=== PATIENT | female | born 1995 | race Hispanic/Latino ===

== ENCOUNTER 2017-12-22 00:08 | Inpatient (IN) | payer OTHER ==
[2017-12-22] MEDS ORDERED: OXYTOCIN/LR 20 UNIT/1,000 ML BAG IV ONE (00:28)
[2017-12-22] MEDS ORDERED: Ringers Lactate 1,000 ML IV ONE (00:28)
[2017-12-22] MEDS ORDERED: CARBOPROST TROME 250 MCG/ML IM PRN (01:17)
[2017-12-22] MEDS ORDERED: MIDAZOLAM HCL 2 MG/2 ML INJ IV PRN (01:17)
[2017-12-22] MEDS ORDERED: MEPERIDINE HCL 25 MG/0.5 ML IV PRN (01:17)
[2017-12-22] MEDS ORDERED: BUTORPHANOL 1 MG/ML INJ IV PRN (01:17)
[2017-12-22] MEDS ORDERED: Ringers Lactate 1,000 ML IV PRN (01:17)
[2017-12-22] MEDS ORDERED: PROMETHAZINE 25 MG/ML VIAL IM PRN (01:17)
[2017-12-22] MEDS ORDERED: METHYLERGONOVINE 0.2MG/ML AMP IM PRN (01:17)
[2017-12-22 01:33] VITALS: BMI 35.8
[2017-12-22 01:40] LABS: RPR Titer ND
[2017-12-22 01:53] LABS: Absolute Lymphocytes (CBC) 2.3 K/uL (0.7-4.9); Absolute Monocytes 0.7 K/uL (0.1-1.3); Absolute Neutrophil 7.4 K/uL (1.8-8.0); Basophils % 0.7 % (0-1.3); Lymphocytes % 21.7 % (15.3-44.8); MCH 32.1 pg (27.0-35.0); MCV 93.3 fL (80-100); MPV 10.3 fL (7.6-11.3); Monocytes % 6.9 % (3.3-12.3); RBC Red Blood Cell Count 3.65 M/uL (3.86-4.86)
[2017-12-22 01:57] LABS: Urine Appearance CLOUDY; Urine Bilirubin NEGATIVE (NEG); Urine Blood 3+ (NEG); Urine Color YELLOW; Urine Glucose NEGATIVE (NEG); Urine Protein NEGATIVE (NEG); Urine Specific Gravity 1.015 (1.005-1.030); Urine Urobilinogen 0.2 mg/dL (0.2-1.0)
[2017-12-22] MEDS ORDERED: OXYTOCIN/LR 20 UNITS/1,000 ML BAG IV SCH (02:00)
[2017-12-22] MEDS ORDERED: Ringers Lactate 1,000 ML IV SCH (02:00)
[2017-12-22 02:23] LABS: Urine Bacteria <20 /HPF (<20); Urine Culture Reflex Order REFLEXED; Urine RBC <5 /HPF (NONE SEEN)
--- NOTE | 2017-12-22 06:33 | PREOPHP ---
Date of Admission: 12/22/2017 A 22-year-old female, at 39 weeks. The patient is Rh positive. Nonimmune to Rubella. Negative beta strep screen. Full admission and labor talk given. The patient is 2.5 cm, 60% effaced, vertex well applied. Cervix still slightly posterior. Rupture of membranes, clear fluid. Anticipate more rapi d progress from this point forward. The patient has no clear labor or plan. She knows if she wants pain medicines she simply has to ask. CASEY/EDITH Voice ID: [id number]
[2017-12-22] MEDS ORDERED: LIDOCAINE 2% INJ, 20 mL 20 ML ONE (12:01)
[2017-12-22] MEDS ORDERED: METHYLERGONOVINE 0.2MG/ML AMP IM ONE (13:17)
[2017-12-22] MEDS ORDERED: CARBOPROST TROME 250 MCG/ML IM ONE (13:17)
[2017-12-22] MEDS ORDERED: DOCUSATE NA/SENNA CONC 1 TAB PO PRN (15:55)
[2017-12-22] MEDS ORDERED: ACETAMINOPHEN 500 MG TAB PO PRN (15:55)
[2017-12-22] MEDS ORDERED: Oxycodone HCl/Acetaminophen 1 TAB TAB PO PRN ×2 (15:55)
[2017-12-22] MEDS ORDERED: DIPHENHYDRAMINE 25 MG TAB/CAP PO PRN (15:55)
[2017-12-22] MEDS ORDERED: BISACODYL 10 MG RECTAL SUPP RECT PRN (15:55)
[2017-12-22] MEDS ORDERED: IBUPROFEN 200 MG TAB PO PRN (15:55)
[2017-12-22] MEDS ORDERED: OXYTOCIN/LR 20 UNIT/1,000 ML BAG IV SCH (16:00)
[2017-12-22] MEDS ORDERED: CEFAZOLIN/NS 1gm 1 GM/50 ML BAG IVPB ONE (16:17)
[2017-12-22] MEDS ORDERED: CEFAZOLIN/SWI 1gm 1 GM/10 ML SYR IV ONE (16:30)
[2017-12-22] MEDS ORDERED: CEFAZOLIN/SWI 1gm 1 GM/10 ML SYR IV SCH (16:30)
--- NOTE | 2017-12-22 16:54 | PN ---
Subjective: The patient is talya every 2 to 3 minutes. She is 8 cm, 80% effaced. Baby is pos terior and -1 station. She has been doing pelvic rocks. She will try to stand beside the bed to do pelvic rocks that might help. She has had no medications so far and is doing quite well. Anticipate delivery relatively soon, and if the baby rotates fairly rapidly after it rotates. Full discussion with patient and family. CASEY/EDITH Voice ID: [id number] Report ID: [id number]
--- NOTE | 2017-12-22 18:00 | PN ---
Subjective: The patient is now a good 8 cm, 90% to 100% effaced. Baby is occiput posterior. She is doing pelvic rocking to try to get the baby to rotate. I think if it rotates, it will come easily. She seems to have adequate pelvic space. She is on 24 milliunits. We will go to 26. The baby stil l looks very good and the patient herself is still under excellent control. CASEY/EDITH Voice ID: [id number] Report ID: [id number]
--- NOTE | 2017-12-22 20:45 | PN ---
The patient is now complete and pushing. The baby is trying rotate. As soon as it rotates I think s he will deliver. CASEY/EDITH Voice ID: [id number] Report ID: [id number]
[2017-12-22 21:47] LABS: RPR (Rapid Plasma Reagin) NON-REACT (NON-REACT)
--- NOTE | 2017-12-23 01:49 | OP ---
Surgeon: Donell Keller MD History: A 22-year-old primigravida, 39 weeks, 1.5 cm on admission. Rupture of membranes at approxi mately 2 to 2.5 cm clear fluid. During the labor, the patient went absolutely natural excellent cont rol. Second stage of about 30 to 40 minutes. Spontaneous vaginal delivery of a 6 pounds 12 ounce fe male. Apgars 9 and 9. First-degree laceration extending from the right side of the introitus, hocke y stick down to the posterior fourchette, 2-0 chromic running locked and interrupted. Tea harkins of the placenta, inspected and noted to be intact and normal. Blood loss 350 cc. The patient gi juan 1 g of Ancef post repair of episiotomy for prophylaxis. Final Diagnoses: 1.Term intrauterine . 2.Vaginal delivery. CASEY/EDITH Voice ID: [id number] Report ID: [id number]
[2017-12-23 16:48] VITALS: BP 123/75; TEMP 98.3
[2017-12-24 19:03] LABS: HBsAG Nonreactive (Nonreactive)
== END 2017-12-23 18:00 | disposition home or self-care (01) | DRG 775 ==
LOC: 2ND-WC 00:08
PROVIDERS: ADMIT Specialist; ATTEND Specialist
PROC: 10E0XZZ Delivery of Products of Conception, External Approach (ICD-10-PCS; principal; 2017-12-20)
PROC: 0HQ9XZZ Repair Perineum Skin, External Approach (ICD-10-PCS; 2017-12-20)
PROC: 10907ZC Drainage of Amniotic Fluid, Therapeutic from Products of Conception, Via Natural or Artificial Opening (ICD-10-PCS; 2017-12-20)
DX: O70.0 First degree perineal laceration during delivery (principal); O64.0XX0 Obstructed labor due to incomplete rotation of fetal head, not applicable or unspecified; Z3A.39 39 weeks gestation of pregnancy; Z37.0 Single live birth
CPT/HCPCS: 36415; 81001; 85025; 86592; 86901; 87086; 87088; 87340; J0690; J2210; J2590

== ENCOUNTER 2020-07-24 17:42 | Emergency (ER) | payer OTHER, SELFPAY ==
[2020-07-24 20:04] LABS: BUN Blood Urea Nitrogen 9 mg/dL (7-18); Bicarbonate 25 mmol/L (21-32); Glucose Level 97 mg/dL (74-106); Sodium Level 139 mmol/L (136-145)
[2020-07-24] MEDS ORDERED: NA CHLORIDE 0.9% 1,000 ML ONE (20:10)
[2020-07-24] MEDS ORDERED: KETOROLAC 30 MG/ML INJ ONE (20:10)
[2020-07-24] MEDS ORDERED: METOCLOPRAMIDE 10 MG/2mL INJ ONE (20:10)
[2020-07-24] MEDS ORDERED: DIPHENHYDRAMINE 50 MG/ML VIAL ONE (20:10)
[2020-07-24 20:11] LABS: Potassium 3.9 mmol/L (3.5-5.1)
[2020-07-24 20:14] LABS: Absolute Lymphocytes (CBC) 1.9 K/uL (0.7-4.9); Basophils % 0.6 % (0-1.3); Hematocrit 39.2 % (36.0-45.0); Lymphocytes % 11.6 % (15.3-44.8); MPV 9.2 fL (7.6-11.3); RBC Red Blood Cell Count 4.46 M/uL (3.86-4.86)
[2020-07-24 20:18] LABS: Blood Morphology Comment NOT SEEN (NOT SEEN); Platelet Estimate ADEQ; White Blood Cell Scan OK (OK)
[2020-07-24 20:37] LABS: Urine Specific Gravity 1.025 (1.005-1.030)
[2020-07-24 20:37] LABS: Urine Blood TRACE (NEG); Urine Glucose NEGATIVE (NEG); Urine Protein NEGATIVE (NEG); Urine Specific Gravity 1.025 (1.005-1.030); Urine pH 5.5 (5.0-7.0)
[2020-07-24 21:01] LABS: Urine Bacteria >50 /HPF (<20); Urine Mucus 2+ /HPF (NONE SEEN)
--- NOTE | 2020-07-24 21:17 | EDPHYS ---
Physician Documentation [facility] Name: Lucita Mayes Age: 25 yrs Sex: Female : 1995 Arrival Date: 07/24/2020 Time: 17:43 Bed 16 Private MD: ED Physician Ari Corbett HPI: 07/24 23:06 This 25 yrs old Female presents to ER via Ambulatory with complaints of kb Dizziness, Headache. 23:06 The patient complains of pain to the right yazidism. The patient describes the headache kb as throbbing. Onset: The symptoms/episode began/occurred 10 day(s) ago. Associated signs and symptoms: Pertinent positives: nausea. Severity of symptoms: At its worst the pain was mild, moderate, in the emergency department the pain is unchanged. Headache History: The patient has had previous headaches and this one is similar to previous episodes. The symptoms are alleviated by nothing. the symptoms are aggravated by nothing. The patient has not experienced similar symptoms in the past. The patient has not recently seen a physician. Pt reports headache for approx 10 days. States she has had nausea as well. States she used to have similar headaches, but seemed to get over them. They started coming back recently. 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 - Social history:: Smoking status: Patient denies any tobacco usage or history of. ROS: 23:04 Constitutional: Negative for fever, chills, and weight loss, Cardiovascular: Negative kb for chest pain, palpitations, and edema, Respiratory: Negative for shortness of breath, cough, wheezing, and pleuritic chest pain, Back: Negative for injury and pain, MS/Extremity: Negative for injury and deformity, Skin: Negative for injury, rash, and discoloration. 23:04 Abdomen/GI: Positive for nausea. 23:04 Neuro: Positive for headache. Exam: 23:05 Constitutional: This is a well developed, well nourished patient who is awake, alert, kb and in no acute distress. Head/Face: Normocephalic, atraumatic. Eyes: Pupils equal round and reactive to light, extra-ocular motions intact. Lids and lashes normal. Conjunctiva and sclera are non-icteric and not injected. Cornea within normal limits. Periorbital areas with no swelling, redness, or edema. Cardiovascular: Regular rate and rhythm with a normal S1 and S2. No gallops, murmurs, or rubs. No pulse deficits. Respiratory: Respirations even and unlabored. No increased work of breathing, no retractions or nasal flaring. Abdomen/GI: Soft, non-tender. No distention Skin: Warm, dry with normal turgor. Normal color. MS/ Extremity: Pulses equal, no cyanosis. Neurovascular intact. Full, normal range of motion. Neuro: Awake and alert, GCS 15, oriented to person, place, time, and situation. Moves all extremities. Normal gait. Vital Signs: 18:35 Pulse 82; Resp 16 S; Temp 97.3(TE); Pulse Ox 100% on R/A; Weight 108.86 kg (R); Height ca1 5 ft. 7 in. (170.18 cm) (R); Pain 6/10; 18:38 BP 114 / 81; ca1 19:15 BP 113 / 82 RA Supine; Pulse 79; Resp 18; Pulse Ox 100% on R/A; mg2 19:18 BP 129 / 90 Sitting; Pulse 80; Resp 18; Pulse Ox 98% on R/A; mg2 19:21 BP 133 / 97 Standing; Pulse 88; Resp 18; Pulse Ox 98% on R/A; mg2 18:35 Body Mass Index 37.59 (108.86 kg, 170.18 cm) ca1 MDM: 18:40 Patient medically screened. kb 23:03 Data reviewed: vital signs, nurses notes. Data interpreted: Pulse oximetry: on room air kb is 98 %. Interpretation: normal. Counseling: I had a detailed discussion with the patient and/or guardian regarding: the historical points, exam findings, and any diagnostic results supporting the discharge/admit diagnosis, lab results, the need for outpatient follow up, a family practitioner, to return to the emergency department if symptoms worsen or persist or if there are any questions or concerns that arise at home. ED course: Pain resolved after treatment. 07/24 18:41 Order name: CBC with Diff kb 07/24 18:41 Order name: Basic Metabolic Panel kb 07/24 18:41 Order name: CBC with Automated Diff EDMS 07/24 18:41 Order name: Basic Metabolic Panel; Complete Time: 20:12 EDMS 07/24 19:18 Order name: Urine Dipstick--Ancillary (enter results); Complete Time: 20:38 mw2 07/24 19:19 Order name: Urine --Ancillary (enter results); Complete Time: 20:38 mw2 07/24 20:18 Order name: CBC Smear Scan EDMS 07/24 20:39 Order name: Urine Microscopic Only; Complete Time: 21:05 kb 07/24 21:02 Order name: Urine Culture EDMS 07/24 18:41 Order name: Urine Test (obtain specimen); Complete Time: 19:18 kb 07/24 18:41 Order name: Urine Dipstick-Ancillary (obtain specimen); Complete Time: 19:18 kb 07/24 18:41 Order name: IV Start; Complete Time: 19:29 kb 07/24 18:41 Order name: Orthostatics; Complete Time: 19:29 kb Administered Medications: 19:56 Drug: Benadryl 12.5 mg Route: IVP; Site: right upper arm; mg2 19:56 Drug: Reglan 10 mg Route: IVP; Site: right upper arm; mg2 19:57 Drug: NS 0.9% 1000 ml Route: IV; Rate: 1000 ml; Site: right upper arm; mg2 19:57 Drug: TORadol - Ketorolac 15 mg Route: IVP; Site: right upper arm; mg2 21:24 Drug: Rocephin (cefTRIAXone) 1 grams Route: IV; Rate: calculated rate; Site: right mg2 antecubital; 21:24 Follow up: Response: No adverse reaction; IV Status: Completed infusion mg2 Disposition: 07/25 19:35 Co-signature as Attending Physician, Ari Corbett MD I agree with the assessment and tw4 plan of care. Disposition: 07/24/20 21:16 Discharged to Home. Impression: Headache, Urinary tract infection, site not specified. - Condition is Stable. - Discharge Instructions: Urinary Tract Infection, Adult, [id number], Migraine Headache, [id number]. - Prescriptions for Macrobid 100 mg Oral Capsule - take 1 capsule by ORAL route every 12 hours for 10 days; 20 capsule. - Medication Reconciliation Form, Thank You Letter, Antibiotic Education, Prescription Opioid Use form. - Follow up: Emergency Department; When: As needed; Reason: Worsening of condition. Follow up: Private Physician; When: 2 - 3 days; Reason: Recheck today's complaints, Continuance of care, Re-evaluation by your physician. Signatures: Dispatcher [employer] EDMD Gwen Fontanez, ANDRESSA-C DELIVERY DRIVER/CUSTOMER SERVICE-Ari Jordan MD MD tw4 Isidoro Braxton, RN RN mg2 Brenda Schmidt RN RN ca1 Corrections: (The following items were deleted from the chart) 07/24 21:24 21:16 07/24/2020 21:16 Discharged to Home. Impression: Headache; Urinary tract mg2 infection, site not specified. Condition is Stable. Forms are Medication Reconciliation Form, Thank You Letter, Antibiotic Education, Prescription Opioid Use. Follow up: Emergency Department; When: As needed; Reason: Worsening of condition. Follow up: Private Physician; When: 2 - 3 days; Reason: Recheck today's complaints, Continuance of care, Re-evaluation by your physician. kb
--- NOTE | 2020-07-24 21:17 | ER ---
Nurse's Notes [facility] Name: Lucita Mayes Age: 25 yrs Sex: Female : 1995 Arrival Date: 07/24/2020 Time: 17:43 Bed 16 Private MD: Diagnosis: Headache;Urinary tract infection, site not specified Presentation: 07/24 18:35 Chief complaint: Patient states: Started 2 weeks ago, migraines on the R side of head. ca1 Hasn't had menstrual period in 5 months prior to having 1 at the beginning of this month. Today around 1600, I feel like I was going to pass out, headache and nausea. Coronavirus screen: Client denies travel out of the [place] in the last 14 days. headache, nausea, Client presents with at least one sign or symptom that may indicate coronavirus-19. Standard/surgical mask placed on the client. Provider contacted for isolation considerations. Ebola Screen: Patient negative for fever greater than or equal to 101.5 degrees Fahrenheit, and additional compatible Ebola Virus Disease symptoms Patient denies exposure to infectious person. Patient denies travel to an Ebola-affected area in the 21 days before illness onset. No symptoms or risks identified at this time. Initial Sepsis Screen: Does the patient meet any 2 criteria? No. Patient's initial sepsis screen is negative. Does the patient have a suspected source of infection? No. Patient's initial sepsis screen is negative. Risk Assessment: Do you want to hurt yourself or someone else? Patient reports no desire to harm self or others. Onset of symptoms was July 24, 2020. 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 - Social history:: Smoking status: Patient denies any tobacco usage or history of. Screenin:29 Abuse screen: Denies threats or abuse. Denies injuries from another. Nutritional mg2 screening: No deficits noted. Tuberculosis screening: No symptoms or risk factors identified. Fall Risk IV access (20 points). Assessment: 19:10 General: Appears in no apparent distress. comfortable. Pain: Complains of pain in head. mg2 Neuro: Level of Consciousness is awake, alert, obeys commands, Oriented to person, place, time, situation. Neuro: Reports dizziness, headache. Cardiovascular: Capillary refill < 3 seconds Patient's skin is warm and dry. Respiratory: Airway is patent Respiratory effort is even, unlabored, Respiratory pattern is regular, symmetrical. GI: No signs and/or symptoms were reported involving the gastrointestinal system. : Reports pain in suprapubic area. EENT: No signs and/or symptoms were reported regarding the EENT system. Derm: Skin is intact, is healthy with good turgor, Skin is pink, warm \T\ dry. normal. Musculoskeletal: Circulation, motion, and sensation intact. Capillary refill < 3 seconds. 21:11 Reassessment: Patient appears in no apparent distress at this time. Patient and/or mg2 family updated on plan of care and expected duration. Pain level reassessed. Patient is alert, oriented x 3, equal unlabored respirations, skin warm/dry/pink. Patient denies pain at this time. Patient states feeling better. Patient states symptoms have improved. Vital Signs: 18:35 Pulse 82; Resp 16 S; Temp 97.3(TE); Pulse Ox 100% on R/A; Weight 108.86 kg (R); Height ca1 5 ft. 7 in. (170.18 cm) (R); Pain 6/10; 18:38 BP 114 / 81; ca1 19:15 BP 113 / 82 RA Supine; Pulse 79; Resp 18; Pulse Ox 100% on R/A; mg2 19:18 BP 129 / 90 Sitting; Pulse 80; Resp 18; Pulse Ox 98% on R/A; mg2 19:21 BP 133 / 97 Standing; Pulse 88; Resp 18; Pulse Ox 98% on R/A; mg2 18:35 Body Mass Index 37.59 (108.86 kg, 170.18 cm) ca1 ED Course: 17:43 Patient arrived in ED. am2 18:37 Triage completed. ca1 18:37 Arm band placed on right wrist. ca1 18:40 Gwen Fontanez [facility]NP-C [facility]. kb 18:40 Ari Corbett MD is Attending Physician. kb 18:47 Paris Ludwig, RN is Primary Nurse. perfecto 19:11 Isidoro Braxton, RN is Primary Nurse. mg2 19:29 No provider procedures requiring assistance completed. Inserted saline lock: 22 gauge mg2 in right upper arm, using aseptic technique. Blood collected. 20:02 Patient has correct armband on for positive identification. mg2 21:24 IV discontinued, intact, bleeding controlled, No redness/swelling at site. Pressure mg2 dressing applied. Administered Medications: 19:56 Drug: Benadryl 12.5 mg Route: IVP; Site: right upper arm; mg2 19:56 Drug: Reglan 10 mg Route: IVP; Site: right upper arm; mg2 19:57 Drug: NS 0.9% 1000 ml Route: IV; Rate: 1000 ml; Site: right upper arm; mg2 19:57 Drug: TORadol - Ketorolac 15 mg Route: IVP; Site: right upper arm; mg2 21:24 Drug: Rocephin (cefTRIAXone) 1 grams Route: IV; Rate: calculated rate; Site: right mg2 antecubital; 21:24 Follow up: Response: No adverse reaction; IV Status: Completed infusion mg2 Outcome: 21:16 Discharge ordered by MD. kb 21:24 Discharged to home ambulatory. mg2 21:24 Condition: stable 21:24 Discharge instructions given to patient, Instructed on discharge instructions, follow up and referral plans. medication usage, Demonstrated understanding of instructions, follow-up care, medications, Prescriptions given X 1. 21:24 Patient left the ED. mg2 Addendum: 07/28/2020 08:28 Addendum: Culture Results: Positive urine culture. No further action required. Bacteria s s sensitive to prescribed antibiotic. Signatures: Gwen Fontanez, CASTING MACHINE ADJUSTER-C CASTING MACHINE ADJUSTER-Ckb Namita Dunham RN RN ss Paris Ludwig RN RN jl7 Back, Smiley am2 Isidoro Braxton, LANCE LUCAS mg2 Brenda Schmidt RN RN ca1 Corrections: (The following items were deleted from the chart) 07/24 18:38 18:35 Chief complaint: Patient states: Started 2 weeks ago, migraines on the R side of ca1 head. Hasn't had menstrual period in 5 months. Today around 1600, I feel like I was going to pass out, headache and nausea. ca1
[2020-07-24] MEDS ORDERED: CEFTRIAXONE/SWI 1gm 1 GM/10 ML SYR ONE (21:35)
[2020-07-24 21:43] VITALS: TEMP 97.3
[2020-07-24 21:47] VITALS: O2SAT 98
[2020-07-24 21:48] VITALS: BP 133/97
== END 2020-07-24 21:24 | disposition home or self-care (01) ==
LOC: ER 17:42
DX: N39.0 Urinary tract infection, site not specified (principal)
CPT/HCPCS: 36415; 80048; 81003; 81015; 81025; 85025; 87077; 87086; 87088; 87186; 99284; J0696; J1200; J2765; J7030

== ENCOUNTER 2021-06-05 05:52 | Inpatient (IN) | payer OTHER ==
[2021-06-05] MEDS ORDERED: PENICILLIN 5 MU in NA CHLORIDE 0.9% 100 ML IV ONE (07:47)
[2021-06-05] MEDS ORDERED: CARBOPROST TROME 250 MCG/ML IM PRN (07:47)
[2021-06-05] MEDS ORDERED: METHYLERGONOVINE 0.2MG/ML AMP IM PRN (07:47)
[2021-06-05] MEDS ORDERED: Ringers Lactate 1,000 ML IV PRN (07:47)
[2021-06-05] MEDS ORDERED: PROMETHAZINE INJ 25 MG/ML AMP IV PRN (07:47)
[2021-06-05] MEDS ORDERED: Ringers Lactate 1,000 ML IV SCH (08:00)
[2021-06-05] MEDS: BUTORPHANOL 1 MG/ML INJ IV PRN ×3 (08:54→11:43)
[2021-06-05 09:02] LABS: Absolute Lymphocytes (CBC) 1.6 K/uL (0.7-4.9); Hematocrit 32.1 % (36.0-45.0); Lymphocytes % 13.2 % (15.3-44.8); MPV 8.2 fL (7.6-11.3); RBC Red Blood Cell Count 3.57 M/uL (3.86-4.86)
[2021-06-05 09:15] VITALS: BMI 40.1
[2021-06-05] MEDS ORDERED: OXYTOCIN/LR 20 UNIT/1,000 ML BAG IV SCH (09:34)
[2021-06-05 09:52] LABS: Urine Appearance CLEAR (Clear); Urine Bilirubin NEGATIVE (Negative); Urine Blood 3+ (Negative); Urine Color YELLOW (Yellow); Urine Glucose NEGATIVE (Negative); Urine Protein TRACE (Negative); Urine Specific Gravity >=1.030 (1.005-1.030); Urine Urobilinogen 0.2 mg/dL (0.2-1.0); Urine pH 6.5 (5.0-7.0)
[2021-06-05 10:01] LABS: Urine Microscopic Reflex ORDER UMIC
[2021-06-05 10:02] LABS: Urine Bacteria 20-50 /HPF (<20); Urine Mucus MOD /HPF (NONE SEEN); Urine RBC <5 /HPF (NONE SEEN)
[2021-06-05] MEDS ORDERED: LIDOCAINE 1% MPF 30 ML VIAL ONE (10:54)
[2021-06-05] MEDS ORDERED: miSOPROStoL 100 MCG TAB ONE (10:54)
[2021-06-05] MEDS ORDERED: PENICILLIN 2.5 MU in NA CHLORIDE 0.9% 100 ML IV SCH (13:00)
[2021-06-05] MEDS ORDERED: Oxycodone HCl/Acetaminophen 1 TAB TAB PO PRN ×2 (13:59→14:02)
[2021-06-05] MEDS ORDERED: IBUPROFEN 600 MG TAB PO PRN (13:59)
[2021-06-05] MEDS ORDERED: Tdap (Diph,Pertuss(Acell),Tet Vac) 0.5 ML SYR IMVAC ONE (13:59)
[2021-06-05 21:15] LABS: RPR (Rapid Plasma Reagin) NON-REACT (NON-REACT)
--- NOTE | 2021-06-06 03:42 | DN ---
Date of Procedure: 06/05/2021 Surgeon: Yakov Mendenhall Time: 12:55 p.m. Delivering Physician: Dr. Yakov Mendenhall Final Diagnoses: 1.Intrauterine at term, delivered at 38 weeks of gestation. 2.Spontaneous labor. 3.Normal vaginal delivery with a second-degree perineal tear and repair. 4.Single live , male baby. Lucita Mayes is a patient of Dr. Keller's, G2, P1, 38 weeks of gestation, spontaneous labor, came to the hospital for evaluation. She was admitted during the active phase of labor. Positive GBS. S he was given penicillin antibiotic, protocol. She also tested positive for COVID and precaution was taken, although she denies any recent upper respiratory or any type of respiratory illnesses. Her pr enatal records are available. Her maternal blood type is A positive and benign care since f irst trimester. Other history and physical was normal and unremarkable. Maternal blood pressure als o normal. She underwent artificial rupture of membranes about 5 cm, showing clear fluid. She continued to labo r. She received stadol for pain control. Otherwise, during the repair of her vaginal area, I had gi juan her an additional 1% Xylocaine local, given by me. She labored during the next 2 hours and she r eached complete cervical dilatation. Her legs were placed up on the stirrups. Vaginal area was prep ped and washed by using diluted Betadine solution. Then she was draped in a sterile fashion. With m aternal pushes, the 's hit appeared crown and delivered, followed by delivery to the shoulders, body, and delivery finally completed. Cord was clamped and cut, and baby passed on to the nursing [facility]. Cord blood obtained. Placenta delivered spontaneously in Schultze presentation. There was a second-degree tear and repair was done by using 2-0 chromic suture, and there was also approximately a 1 cm in length right-sided periurethral tear that was repaired. I put in a red rubber soft cathete r to ensure there was no occlusion of the urethra. Total EBL was 450 cc. I also catheterized her bl adder by sterile technique and drained out approximately 300 cc of urine. Maternal and condi tions were stable. BW/MODL Voice ID: [id number] Report ID: [id number]
[2021-06-06] MEDS ORDERED: METHYLERGONOVINE 0.2MG/ML AMP IM ONE (07:02)
[2021-06-06] MEDS ORDERED: CARBOPROST TROME 250 MCG/ML IM ONE (07:02)
[2021-06-06 12:00] VITALS: BP 136/69; TEMP 97.6
--- NOTE | 2021-06-06 12:15 | DS ---
Date of Discharge: 06/06/2021 Delivering Doctor/covering Doctor: Dr. Yakov Mendenhall. Final Discharge Diagnoses: 1.Intrauterine at 38 weeks of gestation, delivered. 2.Normal vaginal delivery. 3.Single live . 4.She has a positive COVID infection. Disposition: Home. Condition: Stable. Medications: Prescription is ibuprofen 800 mg #20, 1 tablet p.o. t.i.d. p.r.n. for pain with 1 refil l. Followup instructions, usual care, instructions, and also follow up with Dr. Keller. Hospital Course: Lucita Mayes is A G2, P1, 26-year-old female, at 38 weeks of , spontaneous labor, admitted in active phase of labor. Had artificial rupture of membranes, Pitocin augmentation, and she had a normal vaginal delivery. The only remarkable event, she was positive fo r COVID, and also positive for GBS. She was given penicillin for her GBS. Maternal Rh is positive. Baby is at term , a well baby boy delivered with good scores, 9 and 9. Weight 6 poun ds 15 ounces. During the next day, June 06, 2021, she was doing quite well. Uterus was farm, and the minimal va ginal lochia. She is both breast-feeding and bottle-feeding. Normal benign exam. Education was con ducted at the bedside. The patient understood, did have no further instructions. Both period and COVID precaution were all given to the patient. The patien t will call Dr. Keller for followup. BW/MODL Voice ID: [id number] Report ID: [id number]
[2021-06-06] MEDS ORDERED: Tdap (Diph,Pertuss(Acell),Tet Vac) 0.5 ML SYR IMVAC ONE (15:00)
[2021-06-08 14:30] LABS: HBsAG Nonreactive (Nonreactive)
== END 2021-06-06 15:15 | disposition home or self-care (01) | DRG 805 ==
LOC: L&D 05:52 → 2ND-WC 07:46
PROVIDERS: ADMIT Specialist; ATTEND Specialist
PROC: 10E0XZZ Delivery of Products of Conception, External Approach (ICD-10-PCS; principal; 2021-06-05)
PROC: 0KQM0ZZ Repair Perineum Muscle, Open Approach (ICD-10-PCS; 2021-06-05)
DX: O98.52 Other viral diseases complicating childbirth (principal); U07.1 COVID-19; Z37.0 Single live birth; O70.1 Second degree perineal laceration during delivery; O99.824 Streptococcus B carrier state complicating childbirth; Z3A.38 38 weeks gestation of pregnancy
CPT/HCPCS: 36415; 81003; 81015; 85025; 86592; 86901; 87086; 87088; 87340; 90471; 90715; 99218; J0595; J2210; J2540; J2590; J7120; U0003